=== PATIENT | male | born 1985 | race Caucasian/White ===

== ENCOUNTER → 2019-11-27 | Outpatient (CLI) | payer OTHER | LOC: COL.RAD 07:50 | DX: K82.4 Cholesterolosis of gallbladder (principal) ==

== ENCOUNTER 2021-01-24 09:23 | Day surgery (SDC) | payer OTHER ==
[~2021-01-24] VITALS: Ht 175.3 cm; Wt 75.6 kg
[2021-01-24] MEDS ORDERED: ZYLOPRIM 100MG100 MG PO (09:44)
[2021-01-24] MEDS ORDERED: MULTIPLE VITAMI1 TA5 PO (09:44)
[2021-01-24] MEDS ORDERED: VITAMIN D250 MCG PO (09:45)
[2021-01-24 09:46] VITALS: BP 119/76; PULSE 60; TEMP 98.1
[2021-01-24 11:35] VITALS: BP 116/76; PULSE 65; TEMP 97.6
--- NOTE | 2021-01-24 11:35 | NUR ---
pt to [facility] via cart from [facility] room, walked to chair, gait steady, in room, call light in reach. takes water and snack
[2021-01-24 11:50] VITALS: BP 116/81; PULSE 57
[2021-01-24 12:05] VITALS: BP 116/74; PULSE 52
--- NOTE | 2021-01-24 12:05 | NUR ---
Dr esteban talk with pt, pt has new RX sent to [facility] for prilosec 20mg po daily, information given on this drug for pt. Also reviewed discharge inst., biopsy results through office and activity with verbal understanding. iv d'cd intact.
--- NOTE | 2021-01-24 12:20 | NUR ---
pt up in room dressed, no c/o, discharged via w/c to car with
== END 2021-01-24 12:20 | disposition home or self-care (01) ==
LOC: SDCO 09:23
DX: K21.00 Gastro-esophageal reflux disease with esophagitis, without bleeding (principal); K90.0 Celiac disease; Z88.3 Allergy status to other anti-infective agents; Z88.8 Allergy status to other drugs, medicaments and biological substances; Z88.0 Allergy status to penicillin; Z20.822 Contact with and (suspected) exposure to COVID-19; M10.9 Gout, unspecified
CPT/HCPCS: J2704; J7030